=== PATIENT | male | born 1975 | race Two or more races ===

== ENCOUNTER 2022-02-25 06:13 | Outpatient (CLI) | payer OTHER ==
[~2022-02-25] VITALS: Ht 177.8 cm; Wt 97.5 kg
== END 2022-02-25 06:14 | disposition home or self-care (01) ==
LOC: LAB 06:13
PROVIDERS: ATTEND Orthopaedic Surgery
DX: D64.9 Anemia, unspecified (principal); D68.8 Other specified coagulation defects; N39.0 Urinary tract infection, site not specified; E11.9 Type 2 diabetes mellitus without complications; I10 Essential (primary) hypertension; Z76.89 Persons encountering health services in other specified circumstances

== ENCOUNTER 2022-03-14 06:03 | Day surgery (SDC) | payer OTHER | END 2022-03-14 14:15 | disposition home or self-care (01) | LOC: CIR.AMB 06:03 | PROVIDERS: ATTEND Orthopaedic Surgery | DX: M23.231 Derangement of other medial meniscus due to old tear or injury, right knee (principal); Z20.822 Contact with and (suspected) exposure to COVID-19; K21.9 Gastro-esophageal reflux disease without esophagitis; M12.261 Villonodular synovitis (pigmented), right knee; M22.11 Recurrent subluxation of patella, right knee ==

== ENCOUNTER 2022-03-24 14:11 | Outpatient (CLI) | payer OTHER | END 2022-03-24 14:48 | disposition home or self-care (01) | LOC: LAB 14:11 | PROVIDERS: ATTEND Orthopaedic Surgery | DX: M06.4 Inflammatory polyarthropathy (principal) ==

== ENCOUNTER 2022-03-31 06:15 | Outpatient (CLI) | payer OTHER | END 2022-03-31 06:16 | disposition home or self-care (01) | LOC: LAB 06:15 | PROVIDERS: ATTEND Orthopaedic Surgery | DX: D64.9 Anemia, unspecified (principal); M06.4 Inflammatory polyarthropathy ==